=== PATIENT | female | born 1970 | race Caucasian/White ===

== ENCOUNTER → 2021-09-08 | Outpatient (CLI) | payer BC ==
--- NOTE | 2021-09-08 15:00 | US ---
EXAMINATION TYPE: US thyroid st tissue head/neck DATE OF EXAM: 09/08/2021 COMPARISON: NONE CLINICAL HISTORY: E04.1 thyroid nodule. Nodule GLAND SIZE: Right Lobe: 4.4 x 1.4 x 1.8 cm Overall Parenchyma: homogenous Left Lobe: 4.8 x 1.5 x 1.7 cm Overall Parenchyma: homogeneous Isthmus Thickness: 0.4 cm NODULES RIGHT: # of nodules measured on right: 0 LEFT: # of nodules measured on left: 1 1. 2.5 X 1.4 x 1.8 cm, lower, solid or almost completely solid, hypoechoic nodule, which is wider t puente tall, with smooth margins, without echogenic foci. Prior size: No prior Bilateral neck scanned, no evidence of lymphadenopathy. Single nodule left lobe >1cm Heterogeneous normal-sized thyroid with dominant 2.5 cm left thyroid nodule. IMPRESSION: Moderately suspicious left thyroid nodule. Advise FNA. 2017 ACR TI-RADS LEVEL: TR-RADS 4 - Moderately Suspicious: Follow if > 1 cm, FNA if > 1.5 cm *Highest TI-RADS level nodule reported
[2021-09-08 15:16] LABS: T4, Free (Free Thyroxine) 1.12 ng/dL (0.78-2.19)
== END | disposition home or self-care (01) ==
LOC: RADUSWWP 14:17
PROVIDERS: ATTEND Internal Medicine Endocrinology, Diabetes & Metabolism
DX: E04.1 Nontoxic single thyroid nodule (principal)
CPT/HCPCS: 36415; 76536; 84439; 84443

== ENCOUNTER → 2022-04-06 | Outpatient (CLI) | payer BC ==
--- NOTE | 2022-04-06 18:59 | US ---
EXAMINATION TYPE: US thyroid st tissue head/neck DATE OF EXAM: 04/06/2022 COMPARISON: 09/08/2021 CLINICAL HISTORY: 51-year-old female E04.1 SINGLE THYROID NODULE. Left nodule. Hx biopsy a couple yea rs ago on the left thyroid lobe at an outside facility. GLAND SIZE: Right Lobe: 4.5 x 1.8 x 1.3 cm Overall Parenchyma: homogenous Left Lobe: 5.0 x 1.5 x 1.6 cm Overall Parenchyma: homogeneous Isthmus Thickness: 0.37 cm NODULES RIGHT: # of nodules measured on right: 0 LEFT: # of nodules measured on left: 1 1. 3.0 X 2.1 x 1.4 cm, lower lateral-mid, solid or almost completely solid, hypoechoic TR 4 nodule, which is wider than tall, with smooth margins, without echogenic foci. Prior size: 2.5 x 1.4 x 1.8 cm ISTHMUS: # of nodules measured in the isthmus: 0 Bilateral neck scanned, no evidence of lymphadenopathy. IMPRESSION: Enlarging, suspicious TR4, solid nodule in the left lobe currently at 3.0 cm versus 2.5 cm, previousl y. FNA or biopsy recommended.
== END | disposition home or self-care (01) ==
LOC: RADUSWWP 13:56
PROVIDERS: ATTEND Internal Medicine Endocrinology, Diabetes & Metabolism
DX: E04.2 Nontoxic multinodular goiter (principal)
CPT/HCPCS: 76536

== ENCOUNTER 2022-04-14 12:38 | Day surgery (SDC) | payer BC ==
[2022-04-14 14:33] VITALS: RESP 16; TEMP 98
[2022-04-14 14:36] VITALS: BP 126/72; PULSE 70
--- NOTE | 2022-04-14 15:10 | US ---
EXAMINATION TYPE: US FNA thyroid first lesion DATE OF EXAM: 04/14/2022 COMPARISON: NONE HISTORY: Thyroid nodule left. Maximal barrier technique was utilized. After informed consent, skin overlying the left lobe thyroid nodule was localized with ultrasound and the overlying skin prepped and draped. Ultrasound was utili zed using sterile technique. Lidocaine was used for local anesthesia. Five passes with a 25-gauge ne edle were made into the nodule and aspirated specimen was submitted to cytology. Following the proce dure hemostasis achieved. No immediate complication. The patient discharged in stable condition. IMPRESSION: STATUS POST ULTRASOUND GUIDED FINE NEEDLE ASPIRATION OF THYROID NODULE, PATHOLOGY IS PEND ING. THIS PROCEDURE WAS PERFORMED BY THE UNDERSIGNED.
== END 2022-04-14 14:00 | disposition home or self-care (01) ==
LOC: RADPROMAIN 12:38
PROVIDERS: ATTEND Internal Medicine Endocrinology, Diabetes & Metabolism
DX: E04.1 Nontoxic single thyroid nodule (principal); Z88.6 Allergy status to analgesic agent; Z79.899 Other long term (current) drug therapy
CPT/HCPCS: 10005; 88173; 88305

== ENCOUNTER → 2022-09-10 | Outpatient (CLI) | payer BC ==
[2022-09-10 17:57] LABS: T4, Free (Free Thyroxine) 1.01 ng/dL (0.800-1.800)
== END | disposition home or self-care (01) ==
LOC: LABWHC1 11:12
PROVIDERS: ATTEND Internal Medicine Endocrinology, Diabetes & Metabolism
DX: C73 Malignant neoplasm of thyroid gland (principal)
CPT/HCPCS: 36415; 84439; 84443; 84480

== ENCOUNTER → 2023-02-11 | Outpatient (CLI) | payer BC ==
--- NOTE | 2023-02-11 11:21 | US ---
EXAMINATION TYPE: US thyroid st tissue head/neck DATE OF EXAM: 02/11/2023 COMPARISON: US, US FNA CLINICAL HISTORY: C73 neoplasm of thyroid gland. Hx FNA, left lobe of thyroid and isthmus was removed in July of 2022. GLAND SIZE: Right Lobe: 5.0 x 1.9 x 1.7 cm Overall Parenchyma: homogenous Left Lobe: Surgically absent. Isthmus Thickness: Surgically absent. NODULES RIGHT: # of nodules measured on right: 0 LEFT: Surgically absent. ISTHMUS: Surgically absent. Bilateral neck scanned, no evidence of lymphadenopathy. IMPRESSION: No suspicious masses or organizing fluid collection. Surgically absent left thyroid gland. The right thyroid gland is without nodule.
== END | disposition home or self-care (01) ==
LOC: RADUSWWP 10:49
PROVIDERS: ATTEND Internal Medicine Endocrinology, Diabetes & Metabolism
DX: C73 Malignant neoplasm of thyroid gland (principal)
CPT/HCPCS: 76536

== ENCOUNTER → 2023-04-19 | Outpatient (CLI) | payer BC | END | disposition home or self-care (01) | LOC: LABWHC1 13:22 | PROVIDERS: ATTEND Internal Medicine Endocrinology, Diabetes & Metabolism | DX: E04.1 Nontoxic single thyroid nodule (principal) | CPT/HCPCS: 36415; 84439; 84443 ==

== ENCOUNTER → 2024-03-07 | Outpatient (CLI) | payer BC ==
--- NOTE | 2024-03-07 09:07 | US ---
EXAMINATION TYPE: US thyroid st tissue head/neck DATE OF EXAM: 03/07/2024 COMPARISON: Multiple, most recent 02/11/2023 CLINICAL INDICATION: Female, 53 years old with history of C73 MALIGNANT NEOPLASM OF THYROID GLAND; Le ft thyroidectomy GLAND SIZE: Right Lobe: 5.1 x 1.7 x 1.6 cm Overall Parenchyma: homogeneous Left Lobe: Surgically absent Isthmus Thickness: 0.3 cm NODULES RIGHT: # of nodules measured on right: 0 LEFT: Surgically absent ISTHMUS: # of nodules measured in the isthmus: 0 Bilateral neck scanned, no evidence of lymphadenopathy. IMPRESSION: Post left thyroidectomy without evidence for suspicious mass/nodule. No evidence for lymphadenopathy.
== END | disposition home or self-care (01) ==
LOC: RADUSWWP 08:02
PROVIDERS: ATTEND Internal Medicine Endocrinology, Diabetes & Metabolism
DX: C73 Malignant neoplasm of thyroid gland (principal)
CPT/HCPCS: 76536

== ENCOUNTER → 2025-04-10 | Outpatient (CLI) | payer BC ==
--- NOTE | 2025-04-10 13:44 | US ---
EXAMINATION TYPE: US thyroid st tissue head/neck DATE OF EXAM: 04/10/2025 COMPARISON: Multiple, most recent - 03/07/2024 CLINICAL INDICATION: Female, 54 years old with history of C73 MALIGNANT NEOPLASM OF THYROID GLAND; Hx Left thyroidectomy, patient denies any other signs, symptoms, or relevant history TECHNIQUE: Grayscale and color Doppler imaging of the thyroid gland. FINDINGS: GLAND SIZE: Right Lobe: 4.9 x 1.5 x 1.4 cm Overall Parenchyma: homogeneous Left Lobe: Surgically absent Isthmus Thickness: 0.2 cm NODULES RIGHT: # of nodules measured on right: 0 LEFT: Surgically absent ISTHMUS: # of nodules measured in the isthmus: 0 Bilateral neck scanned, no evidence of lymphadenopathy. IMPRESSION: 1. No thyroid nodules identified. 2. Surgically absent left thyroid gland. TI-RADS assessment score and recommendation for follow-up based on appropriate scoring and treatment protocols. TR1 Benign No FNA TR2 Not suspicious No FNA TR3: If nodule size is ? 2.5 cm, FNA is recommended. If nodule size is ? 1.5 cm, follow-up imaging at 1, 3, and 5 years is recommended. TR4: If nodule size is ? 1.5 cm, FNA is recommended. If nodule size is ? 1.0 cm, follow-up imaging at 1, 2, 3, and 5 years is recommended. TR5: If nodule size is ? 1.0 cm, FNA is recommended. If nodule size is ? 0.5 cm, annual follow-up for up to 5 years is recommended. TR 1 thyroid nodules have a 0.3 % risk of malignancy. TR 2 thyroid nodules have a 1.5 % risk of malignancy. TR 3 thyroid nodules have a 4.8 % risk of malignancy. TR 4 thyroid nodules have a 9.1 % risk of malignancy. TR 5 thyroid nodules have a 35 % risk of malignancy. [facility], , 04/10/2025 1:42 PM
== END | disposition home or self-care (01) ==
LOC: RADUSWWP 12:56
PROVIDERS: ATTEND Internal Medicine Endocrinology, Diabetes & Metabolism
DX: C73 Malignant neoplasm of thyroid gland (principal); Z90.09 Acquired absence of other part of head and neck
CPT/HCPCS: 76536